=== PATIENT | male | born 1980 | race Caucasian/White ===

== ENCOUNTER 2021-10-09 08:43 | Emergency (ER) | payer MEDICAID, SELFPAY ==
--- NOTE | ~2021-10-09 | CT_ITS ---
EXAMINATION: CT BRAIN AND CT CERVICAL SPINE WITHOUT CONTRAST. CLINICAL INFORMATION: Right arm pain and right-sided weakness x5 days. COMPARISON: None TECHNIQUE: 5 mm thin axial and reformatted 2 mm thin sagittal and coronal images of brain were obtained. Axial 3 mm thin and reformatted 2 mm thin sagittal and coronal images of cervical spine were obtained. DLP 1440. FINDINGS: BRAIN: There is no acute intra-axial, extra-axial bleed, masses or midline shift. There is no acute infarction evolution. The lateral ventricles are symmetrical in size and configuration without enlargement. There is no edema. The bauer to white matter difference is maintained normal. Bone windows reveal no gross bony abnormality seen except for a 6 mm small bone island in the right frontal bone. Bilateral paranasal sinuses and mastoid air cells are well aerated. There is no scalp soft tissue abnormality. CERVICAL SPINE: There is mild straightening of cervical lordosis. The vertebral heights and alignment are normal. There is minimal loss of C5-C6 and C6-C7 disc heights. There is mild posterior spondylosis C4-C5, C5-C6 and C6-C7 disc levels. The craniovertebral junction and the C1-C2 alignment is normal. No visible acute fracture, dislocation or subluxation seen. The facet joints are symmetrical and normal. The prevertebral and paravertebral soft tissues are normal. There is bilateral small neck lymphadenopathy. The largest short axis lymph nodes right neck measures 8mm and less on axial age 33/5 the lung apices are clear. The airways widely patent. CT/CT cervical spine wo con IMPRESSION: No acute intracranial process seen. There is no acute fracture, dislocation or lytic process seen. There are degenerative disc changes C5-C6 and C6-C7 disc levels with mild ventral and posterior spondylosis.
--- NOTE | ~2021-10-09 | MR_ITS ---
EXAMINATION: BRAIN MRI WITHOUT CONTRAST CLINICAL INFORMATION: Right upper external extremity pain and right-sided weakness x5 days. COMPARISON: CT head 10/09/2021. TECHNIQUE: Multiplanar MR imaging of the brain was performed without contrast. FINDINGS: There is no intracranial mass effect or midline shift. No abnormal extra-axial collection. Lateral and third ventricles are normal. No hydrocephalus. Midline structures including the cervicomedullary junction are normal. No acute bone marrow signal changes. There are a few scattered nonspecific foci of T2 FLAIR signal hyperintensity within the periventricular white matter. No acute territorial infarct. No pathological magnetic susceptibility artifact. Intracranial vascular flow voids are grossly maintained. There is no mastoid or middle ear effusion. Mild to moderate paranasal sinus disease primarily affecting the ethmoid air cells and frontal sinuses. MR/MR head/brain wo con IMPRESSION: Unremarkable brain MRI. No evidence of acute territorial infarct or hemorrhage. With the clinical history of right upper extremity pain and right-sided weakness, a cervical spine MRI may provide better anatomic characterization of the cord and canal given the spondylitic changes at C5-C6 and C6-C7.
--- NOTE | ~2021-10-09 | XR_ITS ---
EXAMINATION: XR SHOULDER, RIGHT CLINICAL INFORMATION: Pain COMPARISON: None TECHNIQUE: 3 views of the right shoulder. FINDINGS: The bones and soft tissues are normal. No fracture. Glenohumeral and acromioclavicular alignment is anatomic with normal joint space. No abnormal soft tissue calcifications. XR/XR shoulder RT min 2V IMPRESSION: Normal right shoulder.
[2021-10-09 09:19] VITALS: BP 172/126; PULSE 90; RESP 20; TEMP 37.1; O2SAT 98; BMI 32.1
--- NOTE | 2021-10-09 10:30 | ED.EXTPRO ---
HPI - Extremity Problem General Chief complaint: Extremity Injury, Upper Stated complaint: R arm pain/neck pain Time Seen by Provider: 10/09/21 10:30 Source: patient Mode of arrival: ambulatory Limitations: no limitations History of Present Illness HPI Narrative: Patient is a 41-year-old male with no reported significant past medical history. He presents emergency department today for evaluation of right-sided headache, that extends down the right side of his neck and into his right arm. He feels numbness and tingling in his right arm and feels that his right hand is weak. The symptoms have been ongoing for 5 days. Over the past 2 days he has developed numbness and tingling in his right leg, however he denies back pain, lower extremity weakness, falls, bowel or bladder dysfunction. Denies personal history of cancer, IV drug abuse, recent surgical procedures, immune compromising conditions. Denies any precipitating injury or falls. Denies any past history of similar symptoms. Related Data Previous Rx's Medication Instructions Recorded prednisone 20 mg tablet 60 mg PO DAILY 5 Days #15 tab 10/09/21 Allergies Allergy/AdvReac Type Severity Reaction Status Date / Time No Known Allergies Allergy Verified 10/09/21 11:09 Review of Systems Review of Systems: Constitutional : No Weight loss, No Fever, No Chills, ENT/Mouth : No Hearing loss, No Ear Pain, No Nasal Congestion, No Sinus Pain, No Hoarseness, No sore throat, No Rhinorrhea, No Swallowing Difficulty Cardiovascular : No Chest Pain, No SOB Respiratory : No Cough, No Dyspnea Gastrointestinal : No Nausea, No Vomiting, No Diarrhea, No abdominal Pain, No Hematochezia, No Melena Genitourinary : No Dysuria, No Urinary Frequency, No Hematuria, No Urinary Incontinence Musculoskeletal : positive neck pain Skin : No Skin Lesions, No rash Neuro : Positive headache. Positive Weakness, positive Numbness, No Paresthesias, no loss of bowel or bladder incontinence, no saddle anesthesia Yes all other systems are reviewed and are negative [facility] Past Medical History Attestation statement: The following information was validated with the patient. Source: old records reviewed Medical History No known health problems Social History Social History Advance Directives: No Advance Directives Information Provided: No Physical Exam Vital Signs: Vital Signs: Last Vital Signs Temp 98.2 F 10/09/21 10:38 Pulse 90 10/09/21 10:38 Resp 28 H 10/09/21 10:38 BP 148/108 H 10/09/21 10:38 Pulse Ox 99 10/09/21 10:38 BMI result Body Mass Index 32.1 Vital signs have been reviewed and appeared to be correct. Blood pressure elevated 148/108. Heart rate normal.? Respiration rate normal. Temperature normal.? Oxygen saturation normal. Appearance: Alert.?Oriented to person, place and time. No acute distress.?Normal affect. Eyes: Pupils equal, round and reactive to light.?EOMi ENT: Pharynx normal.?? Neck: Normal inspection.? Neck supple.??Mild palpable tenderness along right paraspinal cervical muscles CVS: Heart sounds normal. Normal heart rate and rhythm.? Pulses normal.?? Respiratory: No respiratory distress.? Lung sounds clear to auscultation bilaterally?? Abdomen: Soft and non-tender. ? Skin: Skin warm and dry.? Normal skin color.? Normal skin turgor.?? Extremities: No lower extremity edema. Full AROM of right shoulder/right elbow/ right lower extremity.? No calf ttp? Neuro: Moves all extremities spontaneously. Sensation intact bilaterally. CN II-XII intact. Right upper extremity strength 3/5, left upper extremity strength 5/5, right lower extremity strength 5/5, left lower extremity strength 5/5. Ambulates with normal steady gait. NIH Stroke Scale Internal: Initial- Upon Arrival Level of Consciousness: Alert Level of Consciousness Questions: Answers both questions correctly Level of Consciousness Commands: Performs both tasks correctly Best Gaze: Normal Visual: No visual loss Facial Palsy: Normal Motor Arm (Right): No drift Motor Arm (Left): No drift Motor Leg (Right): No drift Motor Leg (Left): No drift Limb Ataxia: Absent Sensory: Normal Best Language: No aphasia Dysarthia: Normal Extinction and Inattention: No abnormality Score: 0 Course Course Course Narrative: Patient is a 41 male for right-sided headache pain numbness tingling weakness the right arm and right leg. Patient had an XR obtained from triage of the right shoulder is normal, no fracture/ dislocation, joint space. Given the onset of his symptoms being 5 days ago would not be a candidate for tPA, will obtain CT of the head and C-spine to exclude infarct, degenerative disc disease. Symptoms may be consistent with cervical radiculopathy, however given additional reports of weakness in the right leg additionally will obtain MRI to evaluate for sclerosis versus infarct. Will trial treatment with Valium at this time. CBC and CMP to be obtained. Reevaluation(s) Reevaluation #1: CBC and CMP are overall unremarkable. CT of the head reveals no acute intracranial process. CT of the cervical spine reveals degenerative disc changes at C5-C6 and C6-C7 with mild ventral and posterior spondylosis. MRI of the brain is overall unremarkable, no infarct hemorrhage, or lesions. Symptoms are most consistent with cervical radiculopathy secondary to spondylosis. Patient reports no change in pain with Valium. Discussed all results and findings the patient, plan for discharge home with a short course of prednisone, advised he will need to follow up with the primary care provider, which he needs to contact you providers, also provided with contact information for [facility], discussed reasons to return back to the emergency department. In addition, blood pressure elevated while in the emergency department, though this may be secondary to pain advised that this should be followed up with primary care provider as he may require antihypertensive medications, advised to return to the emergency department for any persistent headaches, dizziness/lightheadedness, vision changes, neck pain, chest pain, palpitations shortness of breath, difficulty breathing, pedal edema.? Time: 14:15 MDM - Extremity (Nontraumatic) Medical Records Attestation: I reviewed the patient's medical records. Lab Data Attestation: I reviewed the patient's lab results. Result diagrams: 10/09/21 11:39 10/09/21 11:58 Labs: Lab Results 10/09/21 10/09/21 Range/Units 11:39 11:58 WBC 5.6 (4.8-10.8) X10*3/uL RBC 5.58 (4.60-5.80) X10*6/uL Hgb 16.4 (14.0-18.0) g/dl Hct 47.1 (42.0-52.0) % MCV 84.4 (80.0-98.0) fL MCH 29.4 (27.0-33.0) pg MCHC 34.8 (31.0-36.0) g/dl RDW 12.7 (11.0-16.0) % Plt Count 271 (160-400) X10*3/uL MPV 9.5 (9.4-12.4) fL Immature Gran % (Auto) 0.4 (0.0-0.4) % Neut % (Auto) 55.9 (45-73) % Lymph % (Auto) 26.3 (20-40) % [place] % (Auto) 12.9 H (2-11) % Eos % (Auto) 3.4 (0-4) % Baso % (Auto) 1.1 (0-2) % Lymph # (Auto) 1.5 (1.2-4.9) X10*3/uL [place] # (Auto) 0.7 (0.1-1.2) X10*3/uL Eos # (Auto) 0.2 (0.0-0.4) X10*3/uL Baso # (Auto) 0.1 (0.0-0.2) X10*3/uL Abs Immat Gran (auto) 0.02 (0.00-0.03) X10*3/uL Absolute Neuts (auto) 3.1 (2.0-8.3) x10*3/uL Absolute Nucleated RBC 0.000 (0.0-0.012) X10*3/uL Nucleated RBC % (auto) 0.0 (0.0-0.2) /100WBC Sodium 142 (135-145) mmol/L Potassium 4.2 (3.3-5.1) mmol/L Chloride 108 (96-108) mmol/L Carbon Dioxide 30 H (22-29) mmol/L Anion Gap 8 L (12-20) BUN 15 (9-16) mg/dL Creatinine 0.98 (0.5-1.4) mg/dL Estim Creat Clear Calc 123.1 Estimated GFR > 60 Random Glucose 71 (60-115) mg/dL Calcium 9.5 (8.4-10.2) mg/dL Total Bilirubin 0.4 (0.0-1.0) mg/dL AST 28 (5-37) U/L ALT 77 H (0-40) U/L Alkaline Phosphatase 65 (39-117) U/L Total Protein 7.0 (6.5-8.0) g/dL Albumin 4.4 (3.5-5.0) g/dL Imaging Data shoulder XR: Radiologist's impression: XR/XR shoulder RT min 2V IMPRESSION: Normal right shoulder. CT scan - head: Radiologist's impression: CT/CT head/brain wo con IMPRESSION: No acute intracranial process seen. ? There is no acute fracture, dislocation or lytic process seen. There are degenerative disc changes C5-C6 and C6-C7 disc levels with mild ventral and posterior spondylosis.? MRI brain: Radiologist's impression: MR/MR head/brain wo con IMPRESSION: Unremarkable brain MRI. No evidence of acute territorial infarct or hemorrhage. With the clinical history of right upper extremity pain and right-sided weakness, a cervical spine MRI may provide better anatomic characterization of the cord and canal given the spondylitic changes at C5-C6 and C6-C7.? Discharge Plan Discharge Clinical Impression: Spondylosis, Cervical radiculopathy, Elevated blood pressure reading Patient Disposition: Home, Self-Care Instructions: Osteoarthritis (ED), Cervical Radiculopathy (ED) Additional Instructions: The imaging revealed degenerative changes in your neck Spondylosis, causing the pain your are experiencing, cervical radiculopathy which is pinching of the nerves in your neck. You have been given a course of treatment with steroids, prednisone to take daily, please take this with food as it may cause upset stomach. You need to contact or call primary care providers as he will require follow-up. In addition you may contact the [facility]culoskeletal spine center to try and schedule follow-up. Please return to emergency department with any new or worsening symptoms or concerns. Your blood pressure has been elevated but this may be related to your pain, however this should be further followed up with primary care provider or call if it continues to be elevated you may need to be started on treatment for high blood pressure. Prescriptions: New prednisone 20 mg tablet 60 mg PO DAILY 5 Days Qty: 15 0RF Interventions: ED Discharge Assessment Last Done: 10/09/21 14:38 Discharge Date/Time: 10/09/21 14:39
[2021-10-09 10:38] VITALS: BP 148/108; PULSE 90; RESP 28; TEMP 36.8; O2SAT 99
[2021-10-09] MEDS: diazePAM 5 MG TABLET 10 MG PO (11:27)
[2021-10-09 11:45] LABS: MANUAL DIFF FLAG NO
[2021-10-09 11:54] LABS: Basophils Absolute Auto 0.1 X10*3/uL (0.0-0.2); Basophils Percent Auto 1.1 % (0-2); Eosinophils Absolute Auto 0.2 X10*3/uL (0.0-0.4); Eosinophils Percent Auto 3.4 % (0-4); Hematocrit 47.1 % (42.0-52.0); Hemoglobin 16.4 g/dl (14.0-18.0); Imm Gran Abs Auto 0.02 X10*3/uL (0.00-0.03); Imm Gran Pct Auto 0.4 % (0.0-0.4); Lymphocytes Absolute Auto 1.5 X10*3/uL (1.2-4.9); Lymphocytes Percent Auto 26.3 % (20-40); Mean Corpuscular HGB Conc 34.8 g/dl (31.0-36.0); Mean Corpuscular Hemoglobin 29.4 pg (27.0-33.0); Mean Corpuscular Volume 84.4 fL (80.0-98.0); Mean Platelet Volume 9.5 fL (9.4-12.4); Monocytes Absolute Auto 0.7 X10*3/uL (0.1-1.2); Monocytes Percent Auto 12.9 % (2-11); Neutrophils Absolute Auto 3.1 x10*3/uL (2.0-8.3); Neutrophils Percent Auto 55.9 % (45-73); Platelet Count 271 X10*3/uL (160-400); Red Blood Count 5.58 X10*6/uL (4.60-5.80); Red Cell Distribution Width 12.7 % (11.0-16.0); White Blood Count 5.6 X10*3/uL (4.8-10.8)
--- NOTE | 2021-10-09 12:00 | PC.NURSE ---
MRI SCREENING FORM FAXED TO [facility].
[2021-10-09 12:19] LABS: Alanine Aminotransferase 77 U/L (0-40); Albumin Level 4.4 g/dL (3.5-5.0); Alkaline Phosphatase 65 U/L (39-117); Anion Gap 8 (12-20); Aspartate Amino Transferase 28 U/L (5-37); Bilirubin Total 0.4 mg/dL (0.0-1.0); Blood Urea Nitrogen 15 mg/dL (9-16); Calcium 9.5 mg/dL (8.4-10.2); Carbon Dioxide 30 mmol/L (22-29); Chloride 108 mmol/L (96-108); Creatinine Clr Calc Pharmacy 123.1; Estimated Glomerular Filt Rate > 60; Glucose Random 71 mg/dL (60-115); Potassium 4.2 mmol/L (3.3-5.1); Sodium 142 mmol/L (135-145)
== END 2021-10-09 14:39 | disposition home or self-care (01) ==
PROVIDERS: Nurse Practitioner Family; Emergency Provider Emergency Medicine
DX: M47.892 Other spondylosis, cervical region (principal); M54.12 Radiculopathy, cervical region; R51.9 Headache, unspecified; I10 Essential (primary) hypertension; Z79.899 Other long term (current) drug therapy
CPT/HCPCS: 36415; 70450; 70551; 72125; 73030; 80053; 85025; 99284; 99285

== ENCOUNTER 2022-03-12 11:05 | Emergency (ER) | payer MEDICAID, SELFPAY ==
[2022-03-12 11:32] VITALS: BP 190/108; PULSE 85; RESP 18; TEMP 37; O2SAT 95; BMI 30.7
--- NOTE | 2022-03-12 11:34 | ECG_ITS ---
Test Reason : HYPERTENSION Blood Pressure : / mmHG Vent. Rate : 081 BPM Atrial Rate : 081 BPM P-R Int : 124 ms QRS Dur : 082 ms QT Int : 372 ms P-R-T Axes : -11 -04 016 degrees QTc Int : 432 ms Normal sinus rhythm Normal ECG No previous ECGs available Referred By: Generic ED Physician Electronically Signed By:MELECIO MARIEE
[2022-03-12 11:50] LABS: MANUAL DIFF FLAG NO
[2022-03-12 11:57] LABS: Basophils Absolute Auto 0.1 X10*3/uL (0.0-0.2); Basophils Percent Auto 1.1 % (0-2); Eosinophils Absolute Auto 0.2 X10*3/uL (0.0-0.4); Eosinophils Percent Auto 3.4 % (0-4); Hematocrit 46.6 % (42.0-52.0); Hemoglobin 16.1 g/dl (14.0-18.0); Imm Gran Abs Auto 0.03 X10*3/uL (0.00-0.03); Imm Gran Pct Auto 0.5 % (0.0-0.4); Lymphocytes Absolute Auto 1.3 X10*3/uL (1.2-4.9); Lymphocytes Percent Auto 22.9 % (20-40); Mean Corpuscular HGB Conc 34.5 g/dl (31.0-36.0); Mean Corpuscular Hemoglobin 28.9 pg (27.0-33.0); Mean Corpuscular Volume 83.7 fL (80.0-98.0); Mean Platelet Volume 9.4 fL (9.4-12.4); Monocytes Absolute Auto 0.5 X10*3/uL (0.1-1.2); Monocytes Percent Auto 9.5 % (2-11); Neutrophils Absolute Auto 3.5 x10*3/uL (2.0-8.3); Neutrophils Percent Auto 62.6 % (45-73); Platelet Count 261 X10*3/uL (160-400); Red Blood Count 5.57 X10*6/uL (4.60-5.80); Red Cell Distribution Width 12.2 % (11.0-16.0); White Blood Count 5.6 X10*3/uL (4.8-10.8)
[2022-03-12 12:07] LABS: Anion Gap 15 (12-20); Blood Urea Nitrogen 10 mg/dL (9-16); Calcium 9.6 mg/dL (8.4-10.2); Carbon Dioxide 26 mmol/L (22-29); Chloride 107 mmol/L (96-108); Creatinine Clr Calc Pharmacy 140.7; Estimated Glomerular Filt Rate > 60; Glucose Random 105 mg/dL (60-115); Potassium 4.2 mmol/L (3.3-5.1); Sodium 144 mmol/L (135-145)
[2022-03-12 12:47] VITALS: BP 162/108; PULSE 80; RESP 18; O2SAT 98
--- NOTE | 2022-03-12 12:58 | ED_ITS ---
HPI - General Adult General Chief complaint: General Medical Stated complaint: R neck pain, high BP Time Seen by Provider: 03/12/22 12:51 Source: patient Mode of arrival: ambulatory Limitations: no limitations History of Present Illness HPI narrative: Patient comes to the emergency room complaining of high blood pressure. Earlier today, he went to see his primary care physician for an appointment for chronic cervical radiculopathy. When patient was being then, his blood pressure was taken, it was 190/108. Patient was sent to the emergency room. Patient states he has no chest pain or shortness of breath. To his knowledge, his blood pressure has never been this high. Related Data Previous Rx's Medication Instructions Recorded prednisone 20 mg tablet 60 mg PO DAILY 5 days #15 tabs 10/09/21 hydrochlorothiazide 25 mg tablet 25 mg PO DAILY #30 tabs 03/12/22 Allergies Allergy/AdvReac Type Severity Reaction Status Date / Time No Known Allergies Allergy Verified 10/09/21 11:09 Review of Systems Review of Systems: Constitutional : No Weight loss, No Fever, No Chills, No Night Sweats, No Fatigue, No Malaise ENT/Mouth : No Hearing loss, No Ear Pain, No Nasal Congestion, No Sinus Pain, No Hoarseness, No sore throat, No Rhinorrhea, No Swallowing Difficulty Eyes: No Eye Pain, No Swelling, No Redness, No Foreign Body, No Discharge, No Vision Changes Cardiovascular : No Chest Pain, No SOB, No Dyspnea on Exertion, No Orthopnea, No Edema, No Palpitations Respiratory : No Cough, No Sputum, No Wheezing, No Smoke Exposure, No Dyspnea Gastrointestinal : No Nausea, No Vomiting, No Diarrhea, No Constipation, No abdominal Pain, No Hematochezia, No Melena Genitourinary : no irregular bleeding, No Dysuria, No Urinary Frequency, No Hematuria, No Urinary Incontinence, No Urgency, No Flank Pain, No Urinary Flow Changes, No Hesitancy Musculoskeletal : Chronic cervical radiculopathy radiating towards the right arm, No joint pain, No Myalgias, No Joint Swelling Skin : No Skin Lesions, No rash Neuro : No Weakness, No Numbness, No Paresthesias, No Loss of Consciousness, No Dizziness, No Headache Psych : No Anxiety/Panic, No Depression, No SI/HI/AH/VH, No Social Issues, Heme/Lymph: No Bruising, No Bleeding,No Lymphadenopathy Endocrine : No Polyuria, No Polydipsia, No Temperature Intolerance [facility] Past Medical History Medical History (Updated 03/12/22 @ 14:42 by Rosy Farmer MD) Cervical radiculopathy Hypertension No known health problems Social History Social History Advance Directives: No Advance Directives Information Provided: No Physical Exam ED Vital Signs: Vital Signs - 24 hr 03/12/22 11:32 03/12/22 12:47 Temperature 98.6 F Pulse Rate 85 80 Respiratory Rate 18 18 Blood Pressure 190/108 H 162/108 H Pulse Oximetry 95 98 Oxygen Delivery Method Room Air Room Air BMI result Body Mass Index 30.7 Const Other: Appearance: Alert. Oriented X3. No acute distress. Eyes: Pupils equal, round and reactive to light. ENT: Pharynx normal. Neck: Normal inspection. Neck supple. No lymph nodes noted. No crepitus CVS: Normal heart rate and rhythm. Pulses normal. Normal S1 and S2 Respiratory: No respiratory distress. Breath sounds normal. No Wheezing. No rales Abdomen: Soft and nontender. No rigidity. No distention. Skin: Skin warm and dry. Normal skin color. Normal skin turgor. Extremities: No lower extremity edema. No Lacerations. No Rash Neuro: Oriented X 3. No motor deficit. No sensory deficit. Moving all extremities. No slurred speech. CN 2 through 12 grossly intact Psych: calm, cooperative, normal affect Course Course Course Narrative: Patient's initial blood pressure 190/108, 1 hour later it was 162/108. Patient is receiving a 1 dose of p.o. hydralazine. Troponin pending. Patient is asymptomatic. EKG shows normal sinus rhythm, heart rate 81, no ST segment depression or elevation, no T-wave inversion, QTC 432 I discussed with the patient that given his recent numbers of high blood pressure, we will start him on blood pressure medication, patient instructed to keep a log of his blood pressures which he will be checking at pharmacies for free. Blood pressure 153/99, patient will be started on hydrochlorothiazide. Patient instructed to take the 1st dose today. Medical Decision Making Lab Data Result diagrams: 03/12/22 11:42 03/12/22 11:42 Labs: Lab Results 03/12/22 03/12/22 03/12/22 Range/Units 11:42 11:42 11:42 WBC 5.6 (4.8-10.8) X10*3/uL RBC 5.57 (4.60-5.80) X10*6/uL Hgb 16.1 (14.0-18.0) g/dl Hct 46.6 (42.0-52.0) % MCV 83.7 (80.0-98.0) fL MCH 28.9 (27.0-33.0) pg MCHC 34.5 (31.0-36.0) g/dl RDW 12.2 (11.0-16.0) % Plt Count 261 (160-400) X10*3/uL MPV 9.4 (9.4-12.4) fL Immature Gran % (Auto) 0.5 H (0.0-0.4) % Neut % (Auto) 62.6 (45-73) % Lymph % (Auto) 22.9 (20-40) % [place] % (Auto) 9.5 (2-11) % Eos % (Auto) 3.4 (0-4) % Baso % (Auto) 1.1 (0-2) % Lymph # (Auto) 1.3 (1.2-4.9) X10*3/uL [place] # (Auto) 0.5 (0.1-1.2) X10*3/uL Eos # (Auto) 0.2 (0.0-0.4) X10*3/uL Baso # (Auto) 0.1 (0.0-0.2) X10*3/uL Abs Immat Gran (auto) 0.03 (0.00-0.03) X10*3/uL Absolute Neuts (auto) 3.5 (2.0-8.3) x10*3/uL Absolute Nucleated RBC 0.000 (0.0-0.012) X10*3/uL Nucleated RBC % (auto) 0.0 (0.0-0.2) /100WBC Sodium 144 (135-145) mmol/L Potassium 4.2 (3.3-5.1) mmol/L Chloride 107 (96-108) mmol/L Carbon Dioxide 26 (22-29) mmol/L Anion Gap 15 (12-20) BUN 10 (9-16) mg/dL Creatinine 0.84 (0.5-1.4) mg/dL Estim Creat Clear Calc 140.7 Estimated GFR > 60 Random Glucose 105 D (60-115) mg/dL Calcium 9.6 (8.4-10.2) mg/dL Troponin I High Sens < 3.5 (<3.5-35.0) ng/L Discharge Plan Discharge Clinical Impression: Hypertension Patient Disposition: Home, Self-Care Instructions: Hypertension (ED) Additional Instructions: Please follow-up with your primary care physician tomorrow. If you have any w orsening or new symptoms, please return to the emergency room or call 911 Prescriptions: New hydrochlorothiazide 25 mg tablet 25 mg PO DAILY Qty: 30 1RF No Action prednisone 20 mg tablet 60 mg PO DAILY 5 Days Qty: 15 0RF
[2022-03-12] MEDS: hydrALAZINE HCl 25 MG TABLET PO (13:16)
[2022-03-12 13:18] LABS: Troponin-I High Sensitivity < 3.5 ng/L (<3.5-35.0)
[2022-03-12 14:41] VITALS: BP 153/99; PULSE 79; RESP 18; O2SAT 98
== END 2022-03-12 14:50 | disposition home or self-care (01) ==
PROVIDERS: Emergency Provider Emergency Medicine; PCP Emergency Medicine
DX: I10 Essential (primary) hypertension (principal); M54.12 Radiculopathy, cervical region
CPT/HCPCS: 36415; 80048; 84484; 85025; 93005; 99283; 99284

== ENCOUNTER 2022-05-28 17:34 | Emergency (ER) | payer OTHER, MEDICAID, SELFPAY ==
--- NOTE | 2022-05-28 | ECG_ITS ---
Test Reason : CHEST PAIN Blood Pressure : / mmHG Vent. Rate : 100 BPM Atrial Rate : 100 BPM P-R Int : 142 ms QRS Dur : 072 ms QT Int : 340 ms P-R-T Axes : -14 011 002 degrees QTc Int : 438 ms Sinus tachycardia Otherwise normal ECG When compared with ECG of 12-MAR-2022 11:37, No significant change was found Referred By: Dayanara Patino Electronically Signed By:FRAN RETANA MD
--- NOTE | ~2022-05-28 | CT_ITS ---
EXAMINATION: CT HEAD WITHOUT CONTRAST CLINICAL INFORMATION: Headache. COMPARISON: Brain MRI 10/09/2021. TECHNIQUE: Contiguous axial imaging was performed from the skull base to vertex without intravenous administration of contrast. This CT examination was performed using dose optimization techniques as appropriate, variously including the following: *Automated exposure control *Adjustment of mA and/or kV according to patient size (this includes techniques or standardized protocols for targeted exams where dose is matched to indication/reason for exam; i.e. extremities or head) *Use of iterative reconstruction technique DLP: 755 mGy-cm. FINDINGS: There is no intracranial hemorrhage, large infarction, or mass lesion. There is no extra-axial collection. The ventricles are normal in size and configuration without evidence of hydrocephalus. There is moderate paranasal sinus mucosal thickening involving the ethmoids. The mastoid air cells are clear. CT/CT head/brain wo IV con IMPRESSION: No acute intracranial abnormality. Moderate paranasal sinus mucosal thickening.
--- NOTE | ~2022-05-28 | CT_ITS ---
EXAMINATION: CT ANGIOGRAM NECK WITH CONTRAST CT ANGIOGRAM BRAIN WITH CONTRAST CLINICAL INFORMATION: Rule out dissection. COMPARISON: Head CT from earlier today. TECHNIQUE: Test bolus sequences followed by intravenous administration 70 mL of Omnipaque 350. Helical imaging was performed in the axial plane from the thoracic inlet to the skull vertex. Delayed postcontrast imaging of the head was also performed. The data was processed at the radiation therapy technologist workstation for generation of MIP sequences. Angled MIPs and volume rendered reformatted images were also generated at an offline 3D workstation. Stenoses are assessed in accordance with NASCET criteria unless otherwise indicated. This CT examination was performed using dose optimization techniques as appropriate, variously including the following: *Automated exposure control *Adjustment of mA and/or kV according to patient size (this includes techniques or standardized protocols for targeted exams where dose is matched to indication/reason for exam; i.e. extremities or head) *Use of iterative reconstruction technique DLP: 1608 mGy-cm FINDINGS: Head CT: There is no intracranial hemorrhage, large acute infarction, or mass lesion. The ventricles are normal in size and configuration without evidence of hydrocephalus. There is no abnormal enhancement. The dural venous sinuses are normally opacified. There is mild to moderate paranasal sinus mucosal thickening. The mastoid air cells are clear. Neck CTA: There is a normal aortic arch with no significant stenosis of the great vessel origins. The common and internal carotid arteries are normal in course and caliber. Both vertebral arteries are widely patent throughout their extracranial cervical course. Head CTA: No large vessel occlusion is seen. The anterior and posterior circulations are patent. There is right INBOUND SALES MANAGER. Both breaker tender are patent. The ICAs, ACAs, and MCAs are patent. No aneurysm is seen. Non-vascular findings: The upper lungs are clear. No cervical soft tissue abnormality is seen. Reactive appearing cervical lymph nodes are seen along the bilateral cervical chains. The cervical spine is intact with minimal degenerative changes noted. CT/CT angio head neck IMPRESSION: No evidence of dissection within the head or neck arteries. No acute intracranial abnormality.
[2022-05-28 17:45] VITALS: BP 189/115; PULSE 112; RESP 20; TEMP 37.4; O2SAT 100; BMI 32.5
--- NOTE | 2022-05-28 17:47 | ED_ITS ---
HPI - Headache General Chief Complaint: Chest Pain <Dayanara Patino MD - Last Filed: 05/28/22 17:50> Stated Complaint: Chest pain <Dayanara Patino MD - Last Filed: 05/28/22 17:50> Time Seen by Provider: 05/28/22 19:55 <Dayanara Patino MD - Last Filed: 05/28/22 17:50> Source: patient <JUANA Weaver - Last Filed: 05/28/22 23:55> Mode of arrival: ambulatory <JAUNA Weaver - Last Filed: 05/28/22 23:55> Limitations: no limitations <JUANA Weaver - Last Filed: 05/28/22 23:55> History of Present Illness HPI Narrative: 41 year old male with PMH of HTN on Lisinopril presents to the ED complaining of right sided headache radiating to the neck and shoulder, chest pain ,right eye heaviness and blurry vision that started after waking up from sleep at 4 PM today. He describes the headache as throbbing in nature , constant with 10 out of 10 severity.He reports cocaine use 4 days ago. He reports sensitivity to touch, light and sound. He reports receiving the Flu and COVID booster vaccines last Friday and reports sore throat and runny nose. He denies any lightheadedness, dizziness nausea, vomiting, sick contact, recent travel <JUANA Weaver - Last Filed: 05/28/22 23:55> MD elicited complaint: headache <JUANA Weaver - Last Filed: 05/28/22 23:55> Related Data Home Medications: Previous Rx's Medication Instructions Recorded prednisone 20 mg tablet 60 mg PO DAILY 5 days #15 tabs 10/09/21 hydrochlorothiazide 25 mg tablet 25 mg PO DAILY #30 tabs 03/12/22 kggzurpdhh-vxrmmujafaygr-sztexwer 1 cap PO Q8H PRN headache #10 caps 05/28/22 50 mg-300 mg-40 mg capsule (Fioricet) <Dayanara Patino MD - Last Filed: 05/28/22 17:50> Allergies/Adverse Reactions: Allergies Allergy/AdvReac Type Severity Reaction Status Date / Time No Known Allergies Allergy Verified 10/09/21 11:09 <Dayanara Patino MD - Last Filed: 05/28/22 17:50> Review of Systems Review of Systems: Constitutional: No Fever, No Chills ENT/Mouth:+ sore throat, + Rhinorrhea, No Swallowing Difficulty Eyes: +Right Eye Pain, No Swelling, + Redness Cardiovascular: +Chest Pain, +SOB, No Orthopnea, No Edema Respiratory: No Cough, No Sputum, No Wheezing, No dyspnea Gastrointestinal: No Nausea, No Vomiting, No Diarrhea, No abdominal Pain Genitourinary: No Dysuria, No Urinary Frequency, No Hematuria Musculoskeletal: No joint pain, + Indonesian, + Right neck and shoulder tenderness Skin: No Skin Lesions, No rash Neuro: No Weakness, No Numbness, No Dizziness, + Right sided Headache Psych: No Anxiety/Panic, No Depression <JUANA Weaver - Last Filed: 05/28/22 23:55> [facility] Past Medical History Attestation statement: The following information was validated with the patient. <JUANA Aden - Last Filed: 05/28/22 23:55> Medical History: Medical History Cervical radiculopathy Hypertension No known health problems <Dayanara Patino MD - Last Filed: 05/28/22 17:50> Social History Social History: Social History Advance Directives: No Advance Directives Information Provided: No <Dayanara Patino MD - Last Filed: 05/28/22 17:50> Physical Exam Vital Signs: Vital Signs: Last Vital Signs Temp 99.1 F 05/28/22 19:51 Pulse 97 05/28/22 19:51 Resp 26 H 05/28/22 19:51 BP 165/107 H 05/28/22 19:51 Pulse Ox 99 05/28/22 19:51 O2 Del Method 05/28/22 19:51 BMI result Body Mass Index 32.5 <Dayanara Patino MD - Last Filed: 05/28/22 17:50> Vital Signs: Last Vital Signs Temp 99.1 F 05/28/22 19:51 Pulse 97 05/28/22 19:51 Resp 26 H 05/28/22 19:51 BP 165/107 H 05/28/22 19:51 Pulse Ox 99 05/28/22 19:51 O2 Del Method 05/28/22 19:51 BMI result Body Mass Index 32.5 <JUANA Weaver - Last Filed: 05/28/22 23:55> Appearance: Alert. Oriented X3. + acute distress. Eyes: Pupils equal, round and reactive to light. Head/Face: +right Temporal tenderness ENT: Pharynx normal.. No erythema Neck: Normal inspection. Neck supple. CVS: Normal heart rate and rhythm. Pulses normal. Respiratory: No respiratory distress. Breath sounds normal. Abdomen: Soft and + Epigastric tenderness. BSX4 Skin: Skin warm and dry. Normal skin color. Normal skin turgor. No rashes. Extremities: No lower extremity edema. Neuro: Oriented X 3. No motor deficit. No sensory deficit. <JUANA Weaver - Last Filed: 05/28/22 23:55> Course Reevaluation(s) Reevaluation #1: 41-year-old male came in for evaluation of sudden onset of right-sided headache with neck pain headache started about 2 hours before presentation to the hospital associated with photophobia and palpitation a left-sided chest pain. Will order head CT/labs and EKG. <Dayanara Patino MD - Last Filed: 05/28/22 17:50> Time: 17:47 <Dayanara Patino MD - Last Filed: 05/28/22 17:50> Reevaluation #2: CTA head and neck is normal. ESR is normal. Will treat for ocular migraine with combination of IV Toradol, Benadryl, Reglan. Will reassess. <JUANA Weaver - Last Filed: 05/28/22 23:55> Time: 22:26 <JUANA Weaver - Last Filed: 05/28/22 23:55> Reevaluation #3: Patient feels much better. Significant improvement in his headache. He would like to go home. Comfortable DC home. Symptoms likely due to migraine headache. <JUANA Weaver - Last Filed: 05/28/22 23:55> Time: 23:54 <JUANA Weaver - Last Filed: 05/28/22 23:55> Medications Administered Discontinued Medications Generic Name Dose Route Start Last Admin Trade Name Radha PRN Reason Stop Dose Admin Diphenhydramine HCl 50 mg 05/28/22 21:56 05/28/22 22:32 Diphenhydramine Hcl 50 Mg/Ml Vial IVPUSH 05/28/22 21:57 50 mg ONCE ONE Administration Hydromorphone HCl 0.5 mg 05/28/22 20:29 05/28/22 20:51 Hydromorphone Hcl 0.5 Mg/0.5 Ml Syringe IVPUSH 05/28/22 20:30 0.5 mg ONCE ONE Administration Protocol Iohexol 100 ml 05/28/22 21:18 05/28/22 21:20 Iohexol 350 Mg/Ml 100 Ml Infus..Btl IV 05/28/22 21:19 70 ml ONCE ONE Administration Ketorolac Tromethamine 30 mg 05/28/22 21:56 05/28/22 22:31 Ketorolac Tromethamine 30 Mg/Ml Vial IVPUSH 05/28/22 21:57 30 mg ONCE ONE Administration Metoclopramide HCl 10 mg 05/28/22 21:56 05/28/22 22:31 Metoclopramide Hcl 10 Mg/2 Ml Vial IVPUSH 05/28/22 21:57 10 mg ONCE ONE Administration <Dayanara Patino MD - Last Filed: 05/28/22 17:50> Medications Administered Discontinued Medications Generic Name Dose Route Start Last Admin Trade Name Radha PRN Reason Stop Dose Admin Diphenhydramine HCl 50 mg 05/28/22 21:56 05/28/22 22:32 Diphenhydramine Hcl 50 Mg/Ml Vial IVPUSH 05/28/22 21:57 50 mg ONCE ONE Administration Hydromorphone HCl 0.5 mg 05/28/22 20:29 05/28/22 20:51 Hydromorphone Hcl 0.5 Mg/0.5 Ml Syringe IVPUSH 05/28/22 20:30 0.5 mg ONCE ONE Administration Protocol Iohexol 100 ml 05/28/22 21:18 05/28/22 21:20 Iohexol 350 Mg/Ml 100 Ml Infus..Btl IV 05/28/22 21:19 70 ml ONCE ONE Administration Ketorolac Tromethamine 30 mg 05/28/22 21:56 05/28/22 22:31 Ketorolac Tromethamine 30 Mg/Ml Vial IVPUSH 05/28/22 21:57 30 mg ONCE ONE Administration Metoclopramide HCl 10 mg 05/28/22 21:56 05/28/22 22:31 Metoclopramide Hcl 10 Mg/2 Ml Vial IVPUSH 05/28/22 21:57 10 mg ONCE ONE Administration <JUANA Weaver - Last Filed: 05/28/22 23:55> MDM - Headache MDM Narrative Medical decision making narrative: 41 year old male with PMH of HTN on Lisinopril presents to the ED complaining of right sided headache radiating to the neck and shoulder, chest pain ,right eye heaviness and blurry vision that started after waking up from sleep at 4 PM today. The headache is throbbing in nature , constant with 10 out of 10 severity, with associated sensitivity to touch, light and sound. On exam, Hypertensive with BP 165/107, Lung CTA, severe right temporal tenderness, Neck tenderness. Concern for dissection vs temporal arteritis vs ocular migraine. Low suspicion for CVA, trigeminal neuralgia, cluster headache. Plan: Labs, CT head, CTA head and neck, <JUANA Weaver - Last Filed: 05/28/22 23:55> Medical Records Attestation: I reviewed the patient's medical records. <JUANA Weaver - Last Filed: 05/28/22 23:55> Lab Data Attestation: I reviewed the patient's lab results. <JUANA Weaver - Last Filed: 05/28/22 23:55> Result diagrams: : 05/28/22 18:19 05/28/22 18:19 <Dayanara Patino MD - Last Filed: 05/28/22 17:50> Labs: Lab Results 05/28/22 05/28/22 05/28/22 Range/Units 18:19 18:19 18:19 WBC 11.2 H (4.8-10.8) X10*3/uL RBC 5.71 (4.60-5.80) X10*6/uL Hgb 16.6 (14.0-18.0) g/dl Hct 46.6 (42.0-52.0) % MCV 81.6 (80.0-98.0) fL MCH 29.1 (27.0-33.0) pg MCHC 35.6 (31.0-36.0) g/dl RDW 11.6 (11.0-16.0) % Plt Count 306 (160-400) X10*3/uL MPV 9.7 (9.4-12.4) fL Immature Gran % (Auto) 0.4 (0.0-0.4) % Neut % (Auto) 82.3 H (45-73) % Lymph % (Auto) 9.0 L (20-40) % [place] % (Auto) 6.8 (2-11) % Eos % (Auto) 1.1 (0-4) % Baso % (Auto) 0.4 (0-2) % Lymph # (Auto) 1.0 L (1.2-4.9) X10*3/uL [place] # (Auto) 0.8 (0.1-1.2) X10*3/uL Eos # (Auto) 0.1 (0.0-0.4) X10*3/uL Baso # (Auto) 0.1 (0.0-0.2) X10*3/uL Abs Immat Gran (auto) 0.05 H (0.00-0.03) X10*3/uL Absolute Neuts (auto) 9.2 H (2.0-8.3) x10*3/uL Absolute Nucleated RBC 0.000 (0.0-0.012) X10*3/uL Nucleated RBC % (auto) 0.0 (0.0-0.2) /100WBC ESR (0-15) MM/HR Sodium 138 (135-145) mmol/L Potassium 3.9 (3.3-5.1) mmol/L Chloride 100 (96-108) mmol/L Carbon Dioxide 24 (22-29) mmol/L Anion Gap 18 (12-20) BUN 14 (9-16) mg/dL Creatinine 0.89 (0.5-1.4) mg/dL Estim Creat Clear Calc 128.4 Estimated GFR > 60 Random Glucose 159 H (60-115) mg/dL Calcium 9.9 (8.4-10.2) mg/dL Troponin I High Sens < 3.5 (<3.5-35.0) ng/L Influenza Type A (PCR) (Negative) Influenza Type B (PCR) (Negative) RSV RNA Qual (PCR) (Negative) SARS-CoV-2 RNA (RT-PCR) (Negative) 05/28/22 05/28/22 Range/Units 18:19 18:19 WBC (4.8-10.8) X10*3/uL RBC (4.60-5.80) X10*6/uL Hgb (14.0-18.0) g/dl Hct (42.0-52.0) % MCV (80.0-98.0) fL MCH (27.0-33.0) pg MCHC (31.0-36.0) g/dl RDW (11.0-16.0) % Plt Count (160-400) X10*3/uL MPV (9.4-12.4) fL Immature Gran % (Auto) (0.0-0.4) % Neut % (Auto) (45-73) % Lymph % (Auto) (20-40) % [place] % (Auto) (2-11) % Eos % (Auto) (0-4) % Baso % (Auto) (0-2) % Lymph # (Auto) (1.2-4.9) X10*3/uL [place] # (Auto) (0.1-1.2) X10*3/uL Eos # (Auto) (0.0-0.4) X10*3/uL Baso # (Auto) (0.0-0.2) X10*3/uL Abs Immat Gran (auto) (0.00-0.03) X10*3/uL Absolute Neuts (auto) (2.0-8.3) x10*3/uL Absolute Nucleated RBC (0.0-0.012) X10*3/uL Nucleated RBC % (auto) (0.0-0.2) /100WBC ESR 12 (0-15) MM/HR Sodium (135-145) mmol/L Potassium (3.3-5.1) mmol/L Chloride (96-108) mmol/L Carbon Dioxide (22-29) mmol/L Anion Gap (12-20) BUN (9-16) mg/dL Creatinine (0.5-1.4) mg/dL Estim Creat Clear Calc Estimated GFR Random Glucose (60-115) mg/dL Calcium (8.4-10.2) mg/dL Troponin I High Sens (<3.5-35.0) ng/L Influenza Type A (PCR) NEGATIVE (Negative) Influenza Type B (PCR) NEGATIVE (Negative) RSV RNA Qual (PCR) NEGATIVE (Negative) SARS-CoV-2 RNA (RT-PCR) NEGATIVE (Negative) <Dayanara Patino MD - Last Filed: 05/28/22 17:50> Lab Results 05/28/22 05/28/22 05/28/22 Range/Units 18:19 18:19 18:19 WBC 11.2 H (4.8-10.8) X10*3/uL RBC 5.71 (4.60-5.80) X10*6/uL Hgb 16.6 (14.0-18.0) g/dl Hct 46.6 (42.0-52.0) % MCV 81.6 (80.0-98.0) fL MCH 29.1 (27.0-33.0) pg MCHC 35.6 (31.0-36.0) g/dl RDW 11.6 (11.0-16.0) % Plt Count 306 (160-400) X10*3/uL MPV 9.7 (9.4-12.4) fL Immature Gran % (Auto) 0.4 (0.0-0.4) % Neut % (Auto) 82.3 H (45-73) % Lymph % (Auto) 9.0 L (20-40) % [place] % (Auto) 6.8 (2-11) % Eos % (Auto) 1.1 (0-4) % Baso % (Auto) 0.4 (0-2) % Lymph # (Auto) 1.0 L (1.2-4.9) X10*3/uL [place] # (Auto) 0.8 (0.1-1.2) X10*3/uL Eos # (Auto) 0.1 (0.0-0.4) X10*3/uL Baso # (Auto) 0.1 (0.0-0.2) X10*3/uL Abs Immat Gran (auto) 0.05 H (0.00-0.03) X10*3/uL Absolute Neuts (auto) 9.2 H (2.0-8.3) x10*3/uL Absolute Nucleated RBC 0.000 (0.0-0.012) X10*3/uL Nucleated RBC % (auto) 0.0 (0.0-0.2) /100WBC ESR (0-15) MM/HR Sodium 138 (135-145) mmol/L Potassium 3.9 (3.3-5.1) mmol/L Chloride 100 (96-108) mmol/L Carbon Dioxide 24 (22-29) mmol/L Anion Gap 18 (12-20) BUN 14 (9-16) mg/dL Creatinine 0.89 (0.5-1.4) mg/dL Estim Creat Clear Calc 128.4 Estimated GFR > 60 Random Glucose 159 H (60-115) mg/dL Calcium 9.9 (8.4-10.2) mg/dL Troponin I High Sens < 3.5 (<3.5-35.0) ng/L Influenza Type A (PCR) (Negative) Influenza Type B (PCR) (Negative) RSV RNA Qual (PCR) (Negative) SARS-CoV-2 RNA (RT-PCR) (Negative) 05/28/22 05/28/22 Range/Units 18:19 18:19 WBC (4.8-10.8) X10*3/uL RBC (4.60-5.80) X10*6/uL Hgb (14.0-18.0) g/dl Hct (42.0-52.0) % MCV (80.0-98.0) fL MCH (27.0-33.0) pg MCHC (31.0-36.0) g/dl RDW (11.0-16.0) % Plt Count (160-400) X10*3/uL MPV (9.4-12.4) fL Immature Gran % (Auto) (0.0-0.4) % Neut % (Auto) (45-73) % Lymph % (Auto) (20-40) % [place] % (Auto) (2-11) % Eos % (Auto) (0-4) % Baso % (Auto) (0-2) % Lymph # (Auto) (1.2-4.9) X10*3/uL [place] # (Auto) (0.1-1.2) X10*3/uL Eos # (Auto) (0.0-0.4) X10*3/uL Baso # (Auto) (0.0-0.2) X10*3/uL Abs Immat Gran (auto) (0.00-0.03) X10*3/uL Absolute Neuts (auto) (2.0-8.3) x10*3/uL Absolute Nucleated RBC (0.0-0.012) X10*3/uL Nucleated RBC % (auto) (0.0-0.2) /100WBC ESR 12 (0-15) MM/HR Sodium (135-145) mmol/L Potassium (3.3-5.1) mmol/L Chloride (96-108) mmol/L Carbon Dioxide (22-29) mmol/L Anion Gap (12-20) BUN (9-16) mg/dL Creatinine (0.5-1.4) mg/dL Estim Creat Clear Calc Estimated GFR Random Glucose (60-115) mg/dL Calcium (8.4-10.2) mg/dL Troponin I High Sens (<3.5-35.0) ng/L Influenza Type A (PCR) NEGATIVE (Negative) Influenza Type B (PCR) NEGATIVE (Negative) RSV RNA Qual (PCR) NEGATIVE (Negative) SARS-CoV-2 RNA (RT-PCR) NEGATIVE (Negative) <JUANA Weaver - Last Filed: 05/28/22 23:55> ECG Data Attestation: I personally reviewed and interpreted this ECG as follows: <JUANA Weaver - Last Filed: 05/28/22 23:55> ECG interpretation date: 05/28/22 <JUANA Weaver - Last Filed: 05/28/22 23:55> Prior ECG tracings: available for review <JUANA Weaver - Last Filed: 05/28/22 23:55> Interpretation: Normal sinus rhythm, ventricular rate 100 beats per minute, normal [place] interval, normal QTC, no ST segment elevations or depressions. No change from prior. <JUANA Weaver - Last Filed: 05/28/22 23:55> Discharge Plan Discharge Clinical Impression: Headache, migraine <Dayanara Patino MD - Last Filed: 05/28/22 17:50> Patient Disposition: Home, Self-Care <Dayanara Patino MD - Last Filed: 05/28/22 17:50> Instructions: Migraine Headache (ED) <Dayanara Patino MD - Last Filed: 05/28/22 17:50> Additional Instructions: Your CT scan today were normal. Your lab workup was unremarkable. Rest, stay hydrated. Take the prescribed medication as needed for migraine headache. You can also try [id number] Excedrin migraine. Do not use illicit drugs. Follow-up with your primary care. If you develop new or worsening symptoms call 911 or come back to the ER for further evaluation. <Dayanara Patino MD - Last Filed: 05/28/22 17:50> Prescriptions: New [id number]-bnnfmvytoorzc-orpy [Fioricet] 50-300-40 mg capsule 1 cap PO Q8H PRN (Reason: headache) Qty: 10 0RF No Action prednisone 20 mg tablet 60 mg PO DAILY 5 Days Qty: 15 0RF hydrochlorothiazide 25 mg tablet 25 mg PO DAILY Qty: 30 1RF <Dayanara Patino MD - Last Filed: 05/28/22 17:50> Stand Alone Forms: Work/School Release <Dayanara Patino MD - Last Filed: 05/28/22 17:50>
[2022-05-28 18:28] LABS: Basophils Absolute Auto 0.1 X10*3/uL (0.0-0.2); Basophils Percent Auto 0.4 % (0-2); Eosinophils Absolute Auto 0.1 X10*3/uL (0.0-0.4); Eosinophils Percent Auto 1.1 % (0-4); Hematocrit 46.6 % (42.0-52.0); Hemoglobin 16.6 g/dl (14.0-18.0); Imm Gran Abs Auto 0.05 X10*3/uL (0.00-0.03); Imm Gran Pct Auto 0.4 % (0.0-0.4); MANUAL DIFF FLAG NO; Mean Corpuscular HGB Conc 35.6 g/dl (31.0-36.0); Mean Corpuscular Hemoglobin 29.1 pg (27.0-33.0); Mean Corpuscular Volume 81.6 fL (80.0-98.0); Mean Platelet Volume 9.7 fL (9.4-12.4); Monocytes Absolute Auto 0.8 X10*3/uL (0.1-1.2); Monocytes Percent Auto 6.8 % (2-11); Neutrophils Absolute Auto 9.2 x10*3/uL (2.0-8.3); Neutrophils Percent Auto 82.3 % (45-73); Platelet Count 306 X10*3/uL (160-400); Red Blood Count 5.71 X10*6/uL (4.60-5.80); Red Cell Distribution Width 11.6 % (11.0-16.0); White Blood Count 11.2 X10*3/uL (4.8-10.8)
[2022-05-28 18:48] LABS: Anion Gap 18 (12-20); Blood Urea Nitrogen 14 mg/dL (9-16); Calcium 9.9 mg/dL (8.4-10.2); Carbon Dioxide 24 mmol/L (22-29); Chloride 100 mmol/L (96-108); Creatinine Clr Calc Pharmacy 128.4; Estimated Glomerular Filt Rate > 60; Glucose Random 159 mg/dL (60-115); Potassium 3.9 mmol/L (3.3-5.1); Sodium 138 mmol/L (135-145)
[2022-05-28 18:59] LABS: Troponin-I High Sensitivity < 3.5 ng/L (<3.5-35.0)
[2022-05-28 19:14] LABS: Influenza A PCR NEGATIVE (Negative); Influenza B PCR NEGATIVE (Negative); Resp Syncy Virus RNA Qual PCR NEGATIVE (Negative); SARS COV2 PCR INHOUSE NEGATIVE (Negative)
[2022-05-28 19:51] VITALS: BP 165/107; PULSE 97; RESP 26; TEMP 37.3; O2SAT 99
[2022-05-28] MEDS: HYDROmorphone HCl 0.5 MG/0.5 ML SYRINGE IVPUSH (20:51)
[2022-05-28 20:56] LABS: Erythrocyte Sedimentation Rate 12 MM/HR (0-15)
[2022-05-28] MEDS: iohexoL 350 MG/ML 100 ML INFUS..BTL IV (21:20)
[2022-05-28] MEDS: Ketorolac Tromethamine 30 MG/ML VIAL IVPUSH (22:31)
[2022-05-28] MEDS: Metoclopramide HCl 10 MG/2 ML VIAL IVPUSH (22:31)
[2022-05-28] MEDS: diphenhydrAMINE HCL 50 MG/ML VIAL IVPUSH (22:32)
[2022-05-29] VITALS: BP 111/68; PULSE 87; RESP 12; O2SAT 97
== END 2022-05-29 00:05 | disposition home or self-care (01) ==
PROVIDERS: Emergency Medicine; Physician Assistant; Emergency Provider Internal Medicine
DX: G43.909 Migraine, unspecified, not intractable, without status migrainosus (principal); R07.89 Other chest pain; M54.2 Cervicalgia; Z20.822 Contact with and (suspected) exposure to COVID-19; Z79.899 Other long term (current) drug therapy
CPT/HCPCS: 0241U; 36415; 70450; 70496; 70498; 80048; 84484; 85025; 85652; 93005; 96374; 96375; 99284; 99285; J1170; J1200; J1885; J2765; Q9967

== ENCOUNTER 2023-01-29 15:21 | Outpatient (REF) | payer MEDICAID, SELFPAY ==
[2023-01-30 02:49] LABS: Anion Gap 11 (12-20); Blood Urea Nitrogen 15 mg/dL (9-16); Calcium 9.6 mg/dL (8.4-10.2); Carbon Dioxide 32 mmol/L (22-29); Chloride 102 mmol/L (96-108); Estimated Glomerular Filt Rate > 60; Glucose Random 87 mg/dL (60-115); Potassium 3.6 mmol/L (3.3-5.1); Sodium 141 mmol/L (135-145)
== END 2023-01-29 15:22 | disposition home or self-care (01) ==
LOC: HO.HHCL 15:21
PROVIDERS: Visit Provider Registered Nurse
DX: I10 Essential (primary) hypertension (principal)
CPT/HCPCS: 36415; 80048

== ENCOUNTER 2023-02-19 13:38 | Outpatient (REF) | payer MEDICAID, SELFPAY ==
--- NOTE | ~2023-02-19 | XR_ITS ---
EXAMINATION: XR pre mri screening CLINICAL INFORMATION: Reason for Exam ORBIT PRE-MRI COMPARISON: None. TECHNIQUE: 3 views of the orbits XR/XR pre mri screening FINDINGS/IMPRESSION: No metallic or radiopaque foreign bodies identified. Bony orbits unremarkable. Paranasal sinuses are clear.
--- NOTE | ~2023-02-19 | MR_ITS ---
EXAMINATION: MR LUMBAR SPINE WITHOUT CONTRAST CLINICAL INFORMATION: Low back pain. COMPARISON: None. TECHNIQUE: Multiplanar, multisequence imaging was obtained. FINDINGS: VERTEBRAL BODIES AND PARASPINAL STRUCTURES: The marrow signal is within normal limits. There are no compression fractures. Mild posterior subluxations evident at the L4-L5 and L5-S1 levels. The paraspinal soft tissues are normal. There are mild degenerative changes of the left sacroiliac joint. CONUS MEDULLARIS AND CAUDA EQUINE: The distal cord, conus tip, and cauda equina nerve roots are normal. SPINAL LEVELS: L1-L2 and L2-L3: No disc pathology. No central canal stenosis or foraminal narrowing. L3-L4: Mild posterior subluxation and generalized disc bulge with mild facet arthropathy. No central canal stenosis or significant foraminal narrowing. L4-L5: Retrosubluxation and reduced intradiscal signal with a small central disc protrusion and underlying annular tear. Facet arthropathy present without central canal stenosis. Mild bilateral foraminal narrowing. L5-S1: Disc degeneration and posterior subluxation evident with a shallow, broad-based central disc protrusion. No nerve root impingement visible. No central canal stenosis evident. Qdgn-sz-bhzrfijs right foraminal narrowing. Osseous spurring and bulging disc results in moderate left foraminal encroachment. MR/MR lumbar spine wo con IMPRESSION: 1. Small central disc protrusion and underlying annular tear at the L4-L5 level with mild bilateral foraminal narrowing. 2. Disc degeneration and posterior subluxation at L5-S1 with a shallow, broad-based central disc protrusion. No nerve root impingement visible. Moderate left foraminal narrowing.
== END 2023-02-19 13:39 | disposition home or self-care (01) ==
LOC: HO.MRI 13:38
PROVIDERS: PCP Registered Nurse; Visit Provider Registered Nurse
DX: M54.41 Lumbago with sciatica, right side (principal); M54.42 Lumbago with sciatica, left side
CPT/HCPCS: 72148

== ENCOUNTER 2023-05-30 14:10 | Outpatient (REF) | payer MEDICAID, SELFPAY ==
[2023-05-31 03:42] LABS: HBS Num1 0.44 mIU/mL (0-7.99); HBsAGNum1 0.36 S/CO (0.00-0.99); Hepatitis B Surface Antigen Negative (Negative); ~HepC Num1 0.07 S/CO (0.00-0.79); ~Hepatitis B Surface Antibody NONREACTIVE (Nonreactive); ~Hepatitis C Antibody Nonreactive (Nonreactive)
== END 2023-05-30 14:11 | disposition home or self-care (01) ==
LOC: HO.HHCL 14:10
PROVIDERS: Visit Provider Registered Nurse
DX: Z00.00 Encounter for general adult medical examination without abnormal findings (principal)
CPT/HCPCS: 36415; 86706; 86803; 87340

== ENCOUNTER 2023-08-14 15:48 | Outpatient (REF) | payer MEDICAID, SELFPAY ==
[2023-08-14 17:50] LABS: Anion Gap 11 (12-20); Blood Urea Nitrogen 14 mg/dL (9-16); Calcium 9.4 mg/dL (8.4-10.2); Carbon Dioxide 29 mmol/L (22-29); Chloride 104 mmol/L (96-108); Estimated Glomerular Filt Rate > 60; Glucose Random 126 mg/dL (60-115); Potassium 3.3 mmol/L (3.3-5.1); Sodium 141 mmol/L (135-145)
== END 2023-08-14 15:49 | disposition home or self-care (01) ==
LOC: HO.HHCL 15:48
PROVIDERS: Visit Provider Registered Nurse
DX: I10 Essential (primary) hypertension (principal)
CPT/HCPCS: 36415; 80048

== ENCOUNTER 2024-01-12 11:18 | Outpatient (REF) | payer MEDICAID, SELFPAY ==
[2024-01-12 13:18] LABS: MANUAL DIFF FLAG NO
[2024-01-12 13:52] LABS: Basophils Percent Auto 0.9 % (0-2); Eosinophils Absolute Auto 0.2 X10*3/uL (0.0-0.4); Eosinophils Percent Auto 3.9 % (0-4); Hematocrit 44.8 % (42.0-52.0); Hemoglobin 15.5 g/dl (14.0-18.0); Imm Gran Abs Auto 0.02 X10*3/uL (0.00-0.03); Imm Gran Pct Auto 0.4 % (0.0-0.4); Lymphocytes Absolute Auto 1.4 X10*3/uL (1.2-4.9); Lymphocytes Percent Auto 29.7 % (20-40); Mean Corpuscular HGB Conc 34.6 g/dl (31.0-36.0); Mean Corpuscular Hemoglobin 29.3 pg (27.0-33.0); Mean Corpuscular Volume 84.7 fL (80.0-98.0); Mean Platelet Volume 10.1 fL (9.4-12.4); Monocytes Absolute Auto 0.5 X10*3/uL (0.1-1.2); Monocytes Percent Auto 10.7 % (2-11); Neutrophils Absolute Auto 2.5 x10*3/uL (2.0-8.3); Neutrophils Percent Auto 54.4 % (45-73); Platelet Count 295 X10*3/uL (160-400); Red Blood Count 5.29 X10*6/uL (4.60-5.80); Red Cell Distribution Width 12.8 % (11.0-16.0); White Blood Count 4.6 X10*3/uL (4.8-10.8)
[2024-01-12 14:09] LABS: C Reactive Protein 0.51 mg/dL (< or = 0.50)
[2024-01-12 14:33] LABS: Erythrocyte Sedimentation Rate 7 MM/HR (0-15)
== END 2024-01-12 11:19 | disposition home or self-care (01) ==
LOC: HO.HHCL 11:18
PROVIDERS: Visit Provider Registered Nurse
DX: R51.9 Headache, unspecified (principal); G89.29 Other chronic pain
CPT/HCPCS: 36415; 85025; 85652; 86140

== ENCOUNTER 2024-05-09 13:25 | Outpatient (REF) | payer MEDICAID, SELFPAY ==
--- NOTE | ~2024-05-09 | MR_ITS ---
EXAMINATION: MR BRAIN WITHOUT AND WITH CONTRAST CLINICAL INFORMATION: Cluster headaches with increasing frequency. COMPARISON: CTA head and neck from 05/28/2022. Brain MRI from 10/09/2021. TECHNIQUE: MRI of the brain was obtained using routine sequences without and following the administration of 10 mL of Gadavist intravenous contrast. FINDINGS: No focal restricted diffusion is demonstrated to suggest acute or subacute cerebral ischemia. No evidence of acute or chronic hemorrhagic products on heme-sensitive imaging. Normal parenchymal signal characteristics. The ventricles are normal in morphology and size. No abnormal mass effect. No midline shift. Normal appearance of the pituitary gland. Normal positioning of the cerebellar tonsils. Normal arterial and venous vascular flow voids are present. No abnormal contrast enhancement. Normal, homogeneous marrow signal. Moderate mucosal thickening of the paranasal sinuses. Atelectasis of the right maxillary sinus. Moderate leftward nasal septal deviation. No signal abnormalities within the mastoids. MR/MR head/brain wo/w con IMPRESSION: 1. No acute intracranial abnormalities. No abnormal intracranial enhancement. 2. No MRI abnormalities to explain the patient's symptoms. 3. Moderate sinonasal mucosal disease. Atelectasis of the right maxillary sinus. Moderate leftward nasal septal deviation. Electronically signed by: Gray Goodman DO 06/23/2024 05:41 AM EST
[2024-05-09] MEDS: gadobutroL 10 ML VIAL IVPUSH (14:04)
== END 2024-05-09 13:26 | disposition home or self-care (01) ==
LOC: HO.MRI 13:25
PROVIDERS: PCP Registered Nurse; Visit Provider Registered Nurse
DX: G44.019 Episodic cluster headache, not intractable (principal)
CPT/HCPCS: 70553; A9585

== ENCOUNTER 2025-01-17 13:04 | Outpatient (REF) | payer MEDICAID, SELFPAY ==
--- OUTSIDE RECORDS SUMMARY | 2025-01-17 11:30 | XMS_ITS | Encounter Summary ---
Author Organization [employer] Address [address] [facility] [address] [place] [address] Care Team Providers Care Ratchet Setter Name Role Phone [place] [facility] Primary Care Provider [phone] Reason for Visit * Reason Comments Weight Gain Encounter Details Date Type Department Care Team ([facility] st Contact Info) Description 01/17/2025 11:30 AM EDT Office Visit [facility] [address], [place] [id number] [facility] [address] [place] [address] Primary hypertension; Chronic low back pain with bilateral sciatica, unspecified back pain laterality Social History Tobacco Use Types Packs/Day Years Used Date Smoking Tobacco: Former Cigarettes Smokeless Tobacco: Never Tobacco Cessation:Counseling Given: Not Answered Alcohol Use Standard Drinks/Week Comments Yes 0 (1 standard drink = 0.6 oz pur e alcohol) social Depression Answer Date Recorded Patient Health Questionnaire-9 Score 0 07/19/2024 Patient Health Questionnaire-9 Score 0 07/19/2024 Last PHQ-9: Questionnaire Data Not on file 0 07/19/2024 Housing Stability Answer Date Recorded What is your housing situation today? I have kary underwood 09/01/[address] you li ve. Do you have problems with any of the following? None of the above 09/01/2024 Food Insecurity Answer Date Recorded Within the past 12 months, y ou worried that your food would run out before you got money to buy more: Never True 09/01/2024 Within the past 12 months,th e food you bought just didn't last and you didn't have enough money to get more: Never True Transportation Answer Date Recorded In the past 12 months, has l ack of transportation kept you from medical appts, meetings, work or from getting things needed for daily living? No 09/01/2024 Utilities Answer Date Recorded In the past 12 months, has t he electric, gas, oil or water company threatened to shut off services in your home? No 09/01/2024 Depression Answer Date Recorded Patient Health Questionnaire-2 Score 0 07/19/2024 Internet Access Answer Date Recorded Internet Access Q1 Yes 09/01/2024 Internet Access Q2 Not on file 09/01/2024 Sex and Gender Information Value Date Recorded Sex Assigned at Male 05/13/2022 10:39 AM EDT Legal Sex Male 10:39 AM EDT Gender Identity Male 05/13/2022 10:39 AM EDT Sexual Orientation Straight 05/13/2022 10 :39 AM EDT documented as of this encounter Last Filed Vital Signs Vital Sign Reading Time Taken Comments Blood Pressure 130/86 01/17/2025 11:35 AM EDT Pulse 60 01/17/2025 11:35 AM EDT Temperature 36.5 C (97.7 F) 01/17/2025 11:35 AM EDT Respiratory Rate 12 01/17/2025 11:35 AM EDT Oxygen Saturation - - Inhaled Oxygen Concentration - - Weight 111 kg (245 lb 4 oz) 01/17/2025 11:35 AM EDT Height 180.3 cm (5' 11 ) 01/17/2025 11:35 AM EDT Body Mass Index 34.21 01/17/2025 11:35 AM EDT documented in this encounter Plan of Treatment Upcoming Encounters Date Type Department Care Team (Late st Contact Info) Description 02/25/2025 2:30 PM EDT Office Visit [facility] [address] [place] [address] La VerkinKari FNP [address] [place] [address] documented as of this encounter Visit Diagnoses Diagnosis Primary hypertension Unspecified essential hypertension Chronic low back pain with bilateral sciatica, unspecified back pain laterality documented in this encounter Additional Health Concerns Assessment Noted Time PHQ-9 Depression Total Score: 0 07/19/19 25 2:55 PM EST documented as of this encounter Care Teams Ratchet Setter Relationship Specialty Start Date End Date La Verkin ANGÉLICA Pierce [address] [place] [address] PCP - General Family Medicine 08/01/22 documented as of this encounter
[2025-01-17 17:21] LABS: Hemoglobin A1C 162.6584 umol/L; Total Hemoglobin (HGBA1C) 3858.7621 umol/L
[2025-01-17 17:26] LABS: Albumin Level 4.2 g/dL (3.5-5.0); Alkaline Phosphatase 61 U/L (39-117); Anion Gap 9 (12-20); Aspartate Amino Transferase 23 U/L (5-37); Blood Urea Nitrogen 17 mg/dL (9-16); Calcium 8.6 mg/dL (8.4-10.2); Carbon Dioxide 28 mmol/L (22-29); Chloride 109 mmol/L (96-108); Cholesterol 162 mg/dL (<200); Estimated Glomerular Filt Rate > 60; HDL Cholesterol 39 mg/dL (>40); Potassium 3.8 mmol/L (3.3-5.1); Sodium 142 mmol/L (135-145); Total Protein 6.9 g/dL (6.5-8.0); Triglycerides 136 mg/dL (<150)
[2025-01-17 17:51] LABS: Alanine Aminotransferase 66 U/L (0-40)
== END 2025-01-17 13:05 | disposition home or self-care (01) ==
LOC: HO.HHCL 13:04
PROVIDERS: PCP Registered Nurse; Visit Provider Registered Nurse
DX: I10 Essential (primary) hypertension (principal); R73.01 Impaired fasting glucose
CPT/HCPCS: 36415; 80053; 80061; 83036